=== PATIENT | female | born 1990 | race Caucasian/White ===

== ENCOUNTER 2017-02-14 07:08 | Emergency (ER) | payer OTHER ==
[2017-02-14 07:22] VITALS: BP 128/77; BMI 26.9
[2017-02-14] MEDS ORDERED: SOLU-Medrol 125 MG VIAL ONE (07:31)
[2017-02-14] MEDS ORDERED: ZOFRAN TAB 4 MG ONE (07:32)
[2017-02-14] MEDS ORDERED: PROTONIX INJ 40 MG VIAL ONE (07:32)
--- NOTE | 2017-02-14 07:44 | ED.ABDFE ---
HPI - Time seen Time seen: 07:40 - PCP Primary Care Physician: NFD - Complaint Chief Complaint:: " I hurting all over bottom of my stomach its like a cramping pain its real bad. 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 - Family History History of Family Medical Conditions: Yes Family Medical History: Hypertension - Social History Type of Tobacco Use: Cigarettes Alcohol Use: Occasionally Do you use any recreational Drugs:: Yes (THC) Lives With: Family Lives Where: Home - infectious screening Have you traveled outside the country in the last 6 months?: No ROS - Review of Systems Constitutional: No Symptoms Reported Eyes: No Symptoms Reported ENTM: Nose Discharge Respiratoy: No Symptoms Reported Cardiovascular: No Symptoms Reported Gastrointestinal/Abdominal: Nausea, Vomiting Genitourinary: No Symptoms Reported Neurological: No Symptoms Reported Musculoskeletal: No Symptoms Reported Integumentary: No Symptoms Reported Hematologic/Lymphatic: No Symptoms Reported Psychiatric: No Symptoms Reported PE - Vital Signs Vitals: Temperature 98.3 F Pulse Rate 97 Respiratory Rate 18 Blood Pressure 128/77 O2 Sat by Pulse Oximetry 100 - General Limitations: No Limitations General Appearance: Alert, In No Apparent Distress - Head Head Exam: Normal Inspection - Eyes Eye exam: Normal Appearance, EOMI. negative: Scleral Icterus, Conjunctival Injection - ENT ENT Exam: Normal Oropharynx - Neck Neck Exam: Normal Inspection, Full ROM, Trachea Midline - Chest Chest Inspection: Normal Inspection - Respiratory Respiratory Exam: Normal Lung Sounds Bilat. negative: Accessory Muscle Use, Respiratory Distress Respiratory Exam: Bilateral Clear to Auscultation - Cardiovascular Cardiovascular Exam: Regular Rate - Abdominal Exam Abdominal Exam: Normal Inspection, Normal Bowel Sounds, Soft, Tenderness ( suprapubic area). negative: Distention, Guarding Abdominal Tenderness: Suprapubic - Back Back Exam: Normal Inspection - Extremeties Extremities Exam: Normal Inspection, Full ROM - Neurologic Neurological Exam: Alert, Oriented X3, CN II-XII Intact - Psychiatric Psychiatric Exam: Flat Affect - Skin Skin Exam: Intact, Normal Color ROR - Labs Reviewed Laboratory: HCG, Qual Negative <10 mIU/mL 02/14/17 07:55 Specimen Type Clean catch urine 02/14/17 08:02 Urine Color Yellow (YELLOW) 02/14/17 08:02 Urine Appearance Clear (CLEAR) 02/14/17 08:02 Urine pH 8.0 (5.0 - 8.0) 02/14/17 08:02 Ur Specific [place] 1.010 (1.000-1.030) 02/14/17 08:02 Urine Protein Negative (NEGATIVE) 02/14/17 08:02 Urine Glucose (UA) Negative (NEGATIVE) 02/14/17 08:02 Urine Ketones Negative (NEGATIVE) 02/14/17 08:02 Urine Occult Blood Negative (NEGATIVE) 02/14/17 08:02 Urine Nitrite Negative (NEGATIVE) 02/14/17 08:02 Urine Bilirubin Negative (NEGATIVE) 02/14/17 08:02 Urine Urobilinogen 2+ (NORMAL) 02/14/17 08:02 Ur Leukocyte Esterase 1+ (NEGATIVE) 02/14/17 08:02 Urine RBC None seen /HPF (NEGATIVE) 02/14/17 08:02 Urine WBC 2-5 /HPF (NEGATIVE) 02/14/17 08:02 Ur Squamous Epith Cells Few /HPF (NEGATIVE) 02/14/17 08:02 Urine Bacteria Trace /HPF (NEGATIVE) 02/14/17 08:02 Ur Culture Indicated? No/not indicated 02/14/17 08:02 - Diagnosis Discharge Problem: Vomiting Qualifiers: Vomiting type: unspecified Vomiting Intractability: non-intractable Nausea presence: with nausea Qualified Code(s): R11.2 - Nausea with vomiting, unspecified - Discharge Plan Condition: Stable Prescriptions: Ondansetron [Zofran Odt] 4 mg PO Q8H PRN #12 tab PRN Reason: Nausea/Vomiting - Follow ups/Referrals Follow ups/Referrals: NFD,None [Primary Care Provider] - 3 days - Instructions
[2017-02-14] MEDS ORDERED: ZOFRAN TAB 4 MG PO ONE (07:46)
[2017-02-14 08:11] LABS: BILIRUBIN,URINE NEGATIVE (NEGATIVE); BLOOD/HEMOGLOBIN,URINE NEGATIVE (NEGATIVE); GLUCOSE, URINE NEGATIVE (NEGATIVE); KETONES,URINE NEGATIVE (NEGATIVE); LEUKOCYTE ESTERASE ,URINE 1+ (NEGATIVE); NITRITES,URINE NEGATIVE (NEGATIVE); PROTEIN,URINE NEGATIVE (NEGATIVE); UROBILINOGEN,URINE 2+ (NORMAL)
[2017-02-14 08:33] LABS: SERUM PREGNANCY TEST, QUAL NEGATIVE <10 mIU/mL
[2017-02-14 08:45] LABS: APPEARANCE,URINE CLEAR (CLEAR); BACTERIA,URINE TRACE /HPF (NEGATIVE); COLOR,URINE YELLOW (YELLOW); RBC,URINE NONE SEEN /HPF (NEGATIVE); SQUAMOUS EPITHELIAL CELL,UR FEW /HPF (NEGATIVE)
== END 2017-02-14 09:15 | disposition home or self-care (01) ==
LOC: ER 07:08
DX: R11.2 Nausea with vomiting, unspecified (principal)
CPT/HCPCS: 36415; 81001; 84703; 99282; C9113; S0181; J2930

== ENCOUNTER 2017-06-14 15:07 | Emergency (ER) | payer OTHER ==
[2017-06-14 15:12] VITALS: BP 142/78; BMI 28.3
[2017-06-14] MEDS ORDERED: NS 1000 ML 1,000 ML IV ONE (15:55)
[2017-06-14] MEDS ORDERED: NS 1000 ML 1,000 ML ONE (15:56)
[2017-06-14 16:07] LABS: BASOPHILS # (AUTO) 0.1 X10^3/uL (0.0-0.1); BASOPHILS % (AUTO) 0.8 % (0.2-1.0); EOSINOPHILS # (AUTO) 0.1 x10^3/uL (0.0-0.2); EOSINOPHILS % (AUTO) 1.4 % (0.9-2.9); HEMATOCRIT 35.9 % (36.0-47.0); HEMOGLOBIN 12.1 g/dL (12.0-16.0); LYMPHOCYTES # (AUTO) 2.1 X10^3/uL (1.3-2.9); LYMPHOCYTES % (AUTO) 29.7 % (21.0-51.0); MEAN CORPUSCULAR HEMOGLOBIN 27.3 pg (27.0-34.0); MEAN CORPUSCULAR HGB CONC 33.6 g/dL (33.0-35.0); MEAN CORPUSCULAR VOLUME 81.2 fL (80.0-100.0); MEAN PLATELET VOLUME 9.5 fL (7.4-11.0); MONOCYTES # (AUTO) 0.5 x10^3/uL (0.3-0.8); MONOCYTES % (AUTO) 6.4 % (0.0-13.0); NEUTROPHILS # (AUTO) 4.4 x10^3/uL (2.2-4.8); NEUTROPHILS % (AUTO) 61.7 % (42.0-75.0); PLATELET COUNT 211 X10^3/uL (150.0-450.0); RED BLOOD COUNT 4.43 X10^6/uL (3.5-5.4); RED CELL DISTRIBUTION WIDTH 13.1 % (11.6-16.5); WHITE BLOOD COUNT 7.1 X10^3/uL (3.6-10.0)
[2017-06-14 16:12] LABS: BILIRUBIN,URINE NEGATIVE (NEGATIVE); BLOOD/HEMOGLOBIN,URINE NEGATIVE (NEGATIVE); GLUCOSE, URINE NEGATIVE (NEGATIVE); KETONES,URINE NEGATIVE (NEGATIVE); LEUKOCYTE ESTERASE ,URINE NEGATIVE (NEGATIVE); NITRITES,URINE NEGATIVE (NEGATIVE); PROTEIN,URINE NEGATIVE (NEGATIVE); UROBILINOGEN,URINE NORMAL (NORMAL)
[2017-06-14 16:19] LABS: ALANINE AMINOTRANSFERASE 35 Units/L (12-78); ALBUMIN 3.3 g/dL (3.4-5.0); ALKALINE PHOSPHATASE 133 Units/L (46-116); ASPARTATE AMINO TRANSFERASE 19 Units/L (15-37); BLOOD UREA NITROGEN 8 mg/dL (7-18); CALCIUM 9.7 mg/dL (8.5-10.1); CARBON DIOXIDE 26.9 mmol/L (21-32); CHLORIDE 105 mmol/L (98-107); COR CA(FOR HYPOALB) 10.3 mg/dL (8.5-10.1); CREATININE 0.43 mg/dL (0.55-1.02); GLUCOSE 107 mg/dL (65-99); SODIUM 138 mmol/L (136-145); TOTAL PROTEIN 6.9 g/dL (6.4-8.2); eGFR BLACK RACES > 60 (>60); eGFR NON BLACK RACES > 60 (>60)
[2017-06-14 16:20] LABS: APPEARANCE,URINE CLEAR (CLEAR); COLOR,URINE PALE YELLOW (YELLOW)
[2017-06-14 16:21] LABS: AMORPHOUS SEDIMENT,UR TRACE /HPF (NEGATIVE); BACTERIA,URINE NEGATIVE /HPF (NEGATIVE); RBC,URINE NONE SEEN /HPF (NEGATIVE); SQUAMOUS EPITHELIAL CELL,UR RARE /HPF (NEGATIVE)
--- NOTE | 2017-06-14 16:42 | DR.GENAD ---
HPI - PCP Primary Care Physician: nfd - Complaint/Symptoms Chief Complaint Doctors Comments: History as stated. She denies fever, vomiting or diarrhea. She reports that the pain is similar to the ovarian cysts she had removed last year. Sharp 8/10 not aggravated by motion, relieved somewhat with ibuprofen. Chief Complaint:: patient stated for the past 3 days she has been having abdomial pain and vomiting and cramps in her right leg. 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: No Have you traveled outside the country in the last 6 months?: No Isolation: Standard ROS - Review of Systems Eyes: No Symptoms Reported ENTM: No Symptoms Reported Respiratoy: No Symptoms Reported Cardiovascular: No Symptoms Reported Gastrointestinal/Abdominal: Other Genitourinary: No Symptoms Reported Neurological: No Symptoms Reported Musculoskeletal: No Symptoms Reported Integumentary: No Symptoms Reported Hematologic/Lymphatic: No Symptoms Reported Endocrine: No Symptoms Reported Psychiatric: No Symptoms Reported All Other Systems: Reviewed and Negative PE - Vital Signs Vitals: Temperature 98.7 F Pulse Rate [Left Brachial] 110 Pulse Rate 125 Respiratory Rate 16 Blood Pressure 142/78 O2 Sat by Pulse Oximetry 100 - General General Appearance: Alert, In No Apparent Distress - Head Head Exam: Normal Inspection, Atraumatic - Eyes Eye exam: Normal Appearance, PERRL, EOMI - ENT ENT Exam: Normal Exam External Ear Exam: Normal External Inspection TM/Canal Exam: Bilateral Normal Nose Exam: Normal Nose Exam Mouth Exam: Normal Inspection Throat Exam: Normal Inspection - Neck Neck Exam: Normal Inspection - Chest Chest Inspection: Normal Inspection - Respiratory Respiratory Exam: Normal Lung Sounds Bilat Respiratory Exam: Bilateral Clear to Auscultation - Cardiovascular Cardiovascular Exam: Regular Rate, Normal Rhythm - Abdominal Exam Abdominal Exam: Normal Inspection, Normal Bowel Sounds Abdominal Tenderness: LUQ - Back Back Exam: Normal Inspection, Full ROM - Neurologic Neurological Exam: Alert, Oriented X3, CN II-XII Intact - Psychiatric Psychiatric Exam: Normal Affect - Skin Skin Exam: Warm, Dry, Intact Course - Reevaluation 1st: Improved ROR - Labs Reviewed Result Diagrams: 06/14/17 15:58 06/14/17 15:58 Laboratory: WBC 7.1 X10^3/uL (3.6-10.0) 06/14/17 15:58 RBC 4.43 X10^6/uL (3.5-5.4) 06/14/17 15:58 Hgb 12.1 g/dL (12.0-16.0) 06/14/17 15:58 Hct 35.9 % (36.0-47.0) L 06/14/17 15:58 MCV 81.2 fL (80.0-100.0) 06/14/17 15:58 MCH 27.3 pg (27.0-34.0) 06/14/17 15:58 MCHC 33.6 g/dL (33.0-35.0) 06/14/17 15:58 RDW 13.1 % (11.6-16.5) 06/14/17 15:58 Plt Count 211 X10^3/uL (150.0-450.0) 06/14/17 15:58 MPV 9.5 fL (7.4-11.0) 06/14/17 15:58 Neut % 61.7 % (42.0-75.0) 06/14/17 15:58 Lymph % 29.7 % (21.0-51.0) 06/14/17 15:58 Quay % 6.4 % (0.0-13.0) 06/14/17 15:58 Eos % 1.4 % (0.9-2.9) 06/14/17 15:58 Baso % 0.8 % (0.2-1.0) 06/14/17 15:58 Neut # 4.4 x10^3/uL (2.2-4.8) 06/14/17 15:58 Lymph # 2.1 X10^3/uL (1.3-2.9) 06/14/17 15:58 Quay # 0.5 x10^3/uL (0.3-0.8) 06/14/17 15:58 Eos # 0.1 x10^3/uL (0.0-0.2) 06/14/17 15:58 Baso # 0.1 X10^3/uL (0.0-0.1) 06/14/17 15:58 Absolute Nucleated RBC 0.0 /100WBC 06/14/17 15:58 Sodium 138 mmol/L (136-145) 06/14/17 15:58 Corrected Sodium TNP 06/14/17 15:58 Potassium 4.2 mmol/L (3.5-5.1) 06/14/17 15:58 Chloride 105 mmol/L (98-107) 06/14/17 15:58 Carbon Dioxide 26.9 mmol/L (21-32) 06/14/17 15:58 BUN 8 mg/dL (7-18) 06/14/17 15:58 Creatinine 0.43 mg/dL (0.55-1.02) L 06/14/17 15:58 Est GFR (MDRD) Af Amer > 60 (>60) 06/14/17 15:58 Est GFR (MDRD) Non-Af > 60 (>60) 06/14/17 15:58 Glucose 107 mg/dL (65-99) H 06/14/17 15:58 Calcium 9.7 mg/dL (8.5-10.1) 06/14/17 15:58 Corrected Calcium 10.3 mg/dL (8.5-10.1) H 06/14/17 15:58 Total Bilirubin 0.40 mg/dL (0.2-1.0) 06/14/17 15:58 AST 19 Units/L (15-37) 06/14/17 15:58 ALT 35 Units/L (12-78) 06/14/17 15:58 Alkaline Phosphatase 133 Units/L (46-116) H 06/14/17 15:58 C-Reactive Protein 2.50 mg/L (0-3.0) 06/14/17 15:58 Total Protein 6.9 g/dL (6.4-8.2) 06/14/17 15:58 Albumin 3.3 g/dL (3.4-5.0) L 06/14/17 15:58 Globulin 3.6 g/dL (2.5-4.5) 06/14/17 15:58 Albumin/Globulin Ratio 0.9 Ratio (1.1-2.1) L 06/14/17 15:58 Specimen Type Clean catch urine 06/14/17 16:04 Urine Color Pale yellow (YELLOW) 06/14/17 16:04 Urine Appearance Clear (CLEAR) 06/14/17 16:04 Urine pH 8.0 (5.0 - 8.0) 06/14/17 16:04 Ur Specific [place] 1.010 (1.000-1.030) 06/14/17 16:04 Urine Protein Negative (NEGATIVE) 06/14/17 16:04 Urine Glucose (UA) Negative (NEGATIVE) 06/14/17 16:04 Urine Ketones Negative (NEGATIVE) 06/14/17 16:04 Urine Occult Blood Negative (NEGATIVE) 06/14/17 16:04 Urine Nitrite Negative (NEGATIVE) 06/14/17 16:04 Urine Bilirubin Negative (NEGATIVE) 06/14/17 16:04 Urine Urobilinogen Normal (NORMAL) 06/14/17 16:04 Ur Leukocyte Esterase Negative (NEGATIVE) 06/14/17 16:04 Urine RBC None seen /HPF (NEGATIVE) 06/14/17 16:04 Urine WBC None seen /HPF (NEGATIVE) 06/14/17 16:04 Ur Squamous Epith Cells Rare /HPF (NEGATIVE) 06/14/17 16:04 Amorphous Sediment Trace /HPF (NEGATIVE) 06/14/17 16:04 Urine Bacteria Negative /HPF (NEGATIVE) 06/14/17 16:04 Ur Culture Indicated? No/not indicated 06/14/17 16:04 - Diagnosis Discharge Problem: Gastroenteritis - Discharge Plan Condition: Stable - Follow ups/Referrals Follow ups/Referrals: NFD,None [Primary Care Provider] - 3 days - Instructions
== END 2017-06-14 17:03 | disposition home or self-care (01) ==
LOC: ER 15:46
DX: K52.89 Other specified noninfective gastroenteritis and colitis (principal)
CPT/HCPCS: 36415; 80053; 81001; 85025; 86140; 96365; 99282; 99283; A4222